=== PATIENT | male | born 1935 | race Caucasian/White ===

== ENCOUNTER 2018-06-09 19:12 | Inpatient (IN) | payer MEDICARE, OTHER ==
[~2018-06-09] VITALS: Ht 180.3 cm; Wt 81.8 kg
[2018-06-09] MEDS ORDERED: pantoprazole IV 80 MG in normal saline 100ml IV soln 100 ML IV ONE (20:05)
[2018-06-09] MEDS ORDERED: pantoprazole 40 MG vial IV ONE (20:10)
[2018-06-09] MEDS ORDERED: normal saline 1000ML IV soln IVB ONE (20:15)
[2018-06-09] MEDS ORDERED: metoprolol tartrate 1mg/ml inj IV ONE (20:20)
[2018-06-09 20:21] LABS: BASOPHILS % (AUTO) 0.1 % (0-1); EOSINOPHILS # (AUTO) 0.1 X10'3 (0-0.9); EOSINOPHILS % (AUTO) 0.9 % (0-6); HEMATOCRIT 22.1 % (42.0-52.0); HEMOGLOBIN 7.7 g/dl (14.0-17.9); LYMPHOCYTES # (AUTO) 2.2 X10'3 (1.1-4.8); LYMPHOCYTES % (AUTO) 19.3 % (21-51); MEAN CORPUSCULAR HEMOGLOBIN 34.2 PG (27.0-31.0); MEAN CORPUSCULAR HGB CONC 34.7 % (33.0-36.5); MEAN CORPUSCULAR VOLUME 98.4 FL (78-98); MONOCYTES # (AUTO) 0.5 X10'3 (0-0.9); MONOCYTES % (AUTO) 4.8 % (2-12); NEUTROPHILS # (AUTO) 8.5 X10'3 (1.8-7.7); NEUTROPHILS % (AUTO) 74.9 % (42-75); PLATELET COUNT 172 X10'3 (140-440); RED BLOOD COUNT 2.25 X10'6 (4.70-6.10); WHITE BLOOD COUNT 11.4 X10'3 (4.5-11.0)
[2018-06-09 20:23] LABS: ALANINE AMINOTRANSFERASE 13 U/L (12-78); ALBUMIN 2.9 G/DL (3.4-5.0); ALBUMIN/GLOBULIN RATIO 1.4 (1.1-1.5); ALKALINE PHOSPHATASE 47 IU/L (46-116); ANION GAP 10 (8-16); ASPARTATE AMINO TRANSFERASE 7 U/L (10-37); BILIRUBIN,TOTAL 0.4 MG/DL (0.1-1.0); BLOOD UREA NITROGEN 52 MG/DL (7-18); BUN/CREATININE RATIO 47.3 (5.4-32.0); CALCIUM 8.3 MG/DL (8.5-10.1); CHLORIDE 105 MMOL/L (99-107); GLUCOSE 129 MG/DL (70-104); POTASSIUM 4.6 MMOL/L (3.5-5.1); SODIUM 136 MMOL/L (135-145); TOTAL CARBON DIOXIDE 21.1 MMOL/L (24-32); eGFR 64 ML/MIN
[2018-06-09] MEDS ORDERED: ondansetron/PF 4mg/2ml inj IV ONE (20:25)
[2018-06-09 21:27] LABS: PARTIAL THROMBOPLASTIN TIME 23 SECONDS (22-32); PROTHROMBIN TIME 10.7 SECONDS (9.0-12.0)
[2018-06-09] MEDS: pantoprazole 40MG/NS 100ML BAG 100 ML IV SCH ×2 (21:33→21:36)
[2018-06-09 23:51] VITALS: BP 130/45
[2018-06-10] VITALS (22 sets, daily range): BP systolic 109–169; BP diastolic 44–93
[2018-06-10] MEDS ORDERED: haloperidol lactate 5mg/ml inj IM ONE ×2 (00:34→00:35)
[2018-06-10] MEDS ORDERED: LORazepam 2 mg/ml vial IV ONE (00:35)
[2018-06-10] MEDS: pantoprazole 40MG/NS 100ML BAG 100 ML IV SCH ×4 (01:00→19:35)
[2018-06-10] MEDS ORDERED: dextrose 50%-water 50ml dispensing syringe IV PRN (01:05)
[2018-06-10] MEDS ORDERED: mag hydrox/Alum hydrox/simeth 30ml oral suspension PO PRN ×2 (01:05)
[2018-06-10] MEDS ORDERED: loperamide 2mg capsule PO PRN (01:05)
[2018-06-10] MEDS ORDERED: diphenhydrAMINE 50 mg/ml inj IV PRN (01:05)
[2018-06-10] MEDS ORDERED: diphenhydrAMINE 25mg capsule PO PRN (01:05)
[2018-06-10] MEDS ORDERED: magnesium hydroxide 30ml (MOM) UD suspension PO PRN (01:05)
[2018-06-10] MEDS ORDERED: acetaminophen 650mg rectal suppository RC PRN (01:05)
[2018-06-10] MEDS ORDERED: acetaminophen 325mg tablet PO PRN ×2 (01:05)
[2018-06-10] MEDS ORDERED: ondansetron/PF 4mg/2ml inj IV PRN (01:05)
[2018-06-10] MEDS ORDERED: cloNIDine 0.1 MG/24 HOUR patch (7 day patch) TD SCH (01:05)
[2018-06-10] MEDS ORDERED: metoclopramide 5 mg/ml inj IV PRN (01:05)
[2018-06-10] MEDS ORDERED: cyclobenzaprine 10mg tablet PO PRN (01:05)
[2018-06-10] MEDS ORDERED: HYDROcodone/acetaminophen 5mg/325mg tablet PO PRN (01:05)
[2018-06-10] MEDS ORDERED: dicyclomine 10 MG capsule PO PRN (01:05)
[2018-06-10] MEDS ORDERED: bisacodyl 10mg suppository rectal RC PRN (01:05)
[2018-06-10] MEDS ORDERED: HYDROmorphone 1 mg/ml syringe IV PRN ×2 (01:05)
[2018-06-10] MEDS ORDERED: morphine 2 MG/ML inj. syringe IV PRN ×2 (01:05)
[2018-06-10] MEDS ORDERED: HYDROcodone/acetaminophen 10/325mg tab PO PRN (01:05)
[2018-06-10 01:37] LABS: HEMOGLOBIN A1C 5.2 % (4.5-6.2)
[2018-06-10 01:40] LABS: CLARITY,URINE CLEAR (Clear); COLOR,URINE YELLOW (Yellow); GLUCOSE, URINE NEGATIVE (Neg); KETONES,URINE NEGATIVE (Neg); LEUKOCYTE ESTERASE ,URINE NEGATIVE (Neg); NITRITES, URINE NEGATIVE (Neg); OCCULT BLOOD,URINE NEGATIVE (Neg); PROTEIN,URINE NEGATIVE (Neg); UROBILINOGEN,URINE 0.2 E.U/dL (0.2-1.0)
[2018-06-10 01:45] LABS: LIPASE 67 U/L (73-393); MAGNESIUM 1.6 MG/DL (1.5-2.4); PHOSPHORUS 2.3 MG/DL (2.3-4.5)
[2018-06-10 01:49] LABS: UA COLLECTION TYPE STRAIGHT CATH
[2018-06-10] MEDS ORDERED: NAPR220C15 PO (01:49)
[2018-06-10] MEDS ORDERED: ASPI-1264 PO (01:49)
[2018-06-10] MEDS ORDERED: LISI-642 PO (01:49)
[2018-06-10] MEDS ORDERED: METO1TAB25 PO (01:49)
[2018-06-10] MEDS: LORazepam 2 mg/ml vial IV PRN ×5 (05:07→22:29)
[2018-06-10] MEDS: normal saline 1000ml 1,000 ML IV SCH (06:46)
[2018-06-10] MEDS: folic acid inj. 2 MG, thiamine inj. 100 MG, MVI, adult No.4 with vit. K 10 ML in dextro... IV SCH ×4 (07:20)
[2018-06-10] MEDS ORDERED: docusate sod 100mg capsule PO SCH (08:00)
[2018-06-10] MEDS ORDERED: pantoprazole 40 MG vial IV SCH (08:00)
[2018-06-10] MEDS ORDERED: fentaNYL/PF 50MCG/1 ML 2ML syringe ONE (08:57)
[2018-06-10] MEDS ORDERED: MIDAZolam 5mg/5ml vial ONE (08:57)
[2018-06-10] MEDS ORDERED: LIDOcaine Viscous 15ml cup ONE (08:57)
[2018-06-10 09:11] LABS: BASOPHILS % (AUTO) 0.2 % (0-1); EOSINOPHILS # (AUTO) 0.1 X10'3 (0-0.9); HEMATOCRIT 23.5 % (42.0-52.0); HEMOGLOBIN 8.1 g/dl (14.0-17.9); LYMPHOCYTES # (AUTO) 1.8 X10'3 (1.1-4.8); MEAN CORPUSCULAR HEMOGLOBIN 32.7 PG (27.0-31.0); MEAN CORPUSCULAR HGB CONC 34.4 % (33.0-36.5); MEAN PLATELET VOLUME 8.6 FL (7.4-10.4); MONOCYTES # (AUTO) 0.6 X10'3 (0-0.9); MONOCYTES % (AUTO) 8.2 % (2-12); NEUTROPHILS # (AUTO) 4.5 X10'3 (1.8-7.7); NEUTROPHILS % (AUTO) 64.6 % (42-75); PLATELET COUNT 120 X10'3 (140-440); RED BLOOD COUNT 2.47 X10'6 (4.70-6.10); RED CELL DISTRIBUTION WIDTH 15.7 % (11.5-14.5); WHITE BLOOD COUNT 6.9 X10'3 (4.5-11.0)
[2018-06-10 09:28] LABS: ALANINE AMINOTRANSFERASE 11 U/L (12-78); ALBUMIN 2.4 G/DL (3.4-5.0); ALBUMIN/GLOBULIN RATIO 1.3 (1.1-1.5); ALKALINE PHOSPHATASE 38 IU/L (46-116); ANION GAP 6 (8-16); ASPARTATE AMINO TRANSFERASE 18 U/L (10-37); BILIRUBIN,TOTAL 1.2 MG/DL (0.1-1.0); BLOOD UREA NITROGEN 34 MG/DL (7-18); BUN/CREATININE RATIO 37.8 (5.4-32.0); CALCIUM 7.8 MG/DL (8.5-10.1); CHLORIDE 110 MMOL/L (99-107); GLUCOSE 104 MG/DL (70-104); POTASSIUM 4.1 MMOL/L (3.5-5.1); SODIUM 139 MMOL/L (135-145); TOTAL PROTEIN 4.3 G/DL (6.4-8.2); eGFR 81 ML/MIN
[2018-06-10 09:42] LABS: PARTIAL THROMBOPLASTIN TIME 23 SECONDS (22-32); PROTHROMBIN TIME 10.7 SECONDS (9.0-12.0)
[2018-06-10 14:13] LABS: H PYLORI ANTIBODY NEGATIVE (Neg)
[2018-06-10] MEDS ORDERED: FOSI10TA3 PO (18:07)
[2018-06-10] MEDS ORDERED: METO25TA6 PO (18:07)
[2018-06-10] MEDS: haloperidol lactate 5mg/ml inj IM PRN (18:42)
[2018-06-10] MEDS: pantoprazole 40mg Tablet.DR PO SCH (19:38)
[2018-06-10] MEDS ORDERED: temazepam 15mg capsule PO PRN (21:00)
[2018-06-11] MEDS: haloperidol lactate 5mg/ml inj IM PRN ×2 (00:38→10:39)
[2018-06-11] MEDS: pantoprazole 40MG/NS 100ML BAG 100 ML IV SCH ×2 (00:39→05:37)
[2018-06-11] MEDS: LORazepam 2 mg/ml vial IV PRN ×4 (01:40→21:59)
[2018-06-11 03:00] VITALS: BP 168/67
[2018-06-11 06:00] VITALS: BP 154/57
[2018-06-11 06:20] LABS: BASOPHILS % (AUTO) 0.3 % (0-1); EOSINOPHILS # (AUTO) 0.1 X10'3 (0-0.9); EOSINOPHILS % (AUTO) 1.2 % (0-6); HEMATOCRIT 23.7 % (42.0-52.0); HEMOGLOBIN 8.3 g/dl (14.0-17.9); LYMPHOCYTES # (AUTO) 1.4 X10'3 (1.1-4.8); LYMPHOCYTES % (AUTO) 23.8 % (21-51); MEAN CORPUSCULAR HEMOGLOBIN 33.1 PG (27.0-31.0); MEAN CORPUSCULAR HGB CONC 34.9 % (33.0-36.5); MEAN CORPUSCULAR VOLUME 94.8 FL (78-98); MONOCYTES # (AUTO) 0.5 X10'3 (0-0.9); MONOCYTES % (AUTO) 9.5 % (2-12); NEUTROPHILS # (AUTO) 3.7 X10'3 (1.8-7.7); NEUTROPHILS % (AUTO) 65.2 % (42-75); PLATELET COUNT 119 X10'3 (140-440); RED CELL DISTRIBUTION WIDTH 15.6 % (11.5-14.5); WHITE BLOOD COUNT 5.7 X10'3 (4.5-11.0)
[2018-06-11 06:36] LABS: ALANINE AMINOTRANSFERASE 22 U/L (12-78); ALBUMIN 2.7 G/DL (3.4-5.0); ALBUMIN/GLOBULIN RATIO 1.3 (1.1-1.5); ALKALINE PHOSPHATASE 41 IU/L (46-116); AMYLASE 36 U/L (25-115); ANION GAP 7 (8-16); ASPARTATE AMINO TRANSFERASE 28 U/L (10-37); BILIRUBIN,TOTAL 1.2 MG/DL (0.1-1.0); BLOOD UREA NITROGEN 19 MG/DL (7-18); BUN/CREATININE RATIO 24.1 (5.4-32.0); CALCIUM 8.3 MG/DL (8.5-10.1); CHLORIDE 110 MMOL/L (99-107); CHOLESTEROL 102 MG/DL (0-200); CREATININE 0.79 MG/DL (0.60-1.10); GLUCOSE 102 MG/DL (70-104); HDL CHOLESTEROL 34 MG/DL (35-60); LDL CHOLESTEROL 54 MG/DL (50-100); POTASSIUM 4.2 MMOL/L (3.5-5.1); SODIUM 141 MMOL/L (135-145); TOTAL CARBON DIOXIDE 24.3 MMOL/L (24-32); TOTAL PROTEIN 4.8 G/DL (6.4-8.2); TRIGLYCERIDES 140 MG/DL (20-135); eGFR > 90 ML/MIN
[2018-06-11 07:01] LABS: MAGNESIUM 1.9 MG/DL (1.5-2.4)
[2018-06-11] MEDS: pantoprazole 40mg Tablet.DR PO SCH (08:00)
[2018-06-11] MEDS: folic acid inj. 2 MG, thiamine inj. 100 MG, MVI, adult No.4 with vit. K 10 ML in dextro... IV SCH ×4 (08:28)
[2018-06-11] MEDS ORDERED: iohexol 350MG/ML 100ml bottle IV ONE (10:26)
[2018-06-11 11:00] VITALS: BP 102/43
[2018-06-11 15:00] VITALS: BP 149/50
[2018-06-11 18:29] VITALS: BP 149/50
[2018-06-11 19:00] VITALS: BP 152/62
[2018-06-11] MEDS: metoprolol tartrate 25mg tablet PO SCH (20:00)
[2018-06-11] MEDS: pantoprazole 40 MG vial IV SCH (20:39)
[2018-06-12] MEDS: normal saline 1000ml 1,000 ML IV SCH (01:01)
[2018-06-12 03:00] VITALS: BP 144/53
[2018-06-12 05:03] LABS: BASOPHILS % (AUTO) 0.3 % (0-1); EOSINOPHILS # (AUTO) 0.1 X10'3 (0-0.9); EOSINOPHILS % (AUTO) 1.5 % (0-6); HEMATOCRIT 22.2 % (42.0-52.0); HEMOGLOBIN 7.9 g/dl (14.0-17.9); LYMPHOCYTES % (AUTO) 17.4 % (21-51); MEAN CORPUSCULAR HEMOGLOBIN 33.6 PG (27.0-31.0); MEAN CORPUSCULAR HGB CONC 35.4 % (33.0-36.5); MEAN CORPUSCULAR VOLUME 94.8 FL (78-98); MEAN PLATELET VOLUME 8.2 FL (7.4-10.4); MONOCYTES # (AUTO) 0.6 X10'3 (0-0.9); MONOCYTES % (AUTO) 11.1 % (2-12); NEUTROPHILS # (AUTO) 3.8 X10'3 (1.8-7.7); NEUTROPHILS % (AUTO) 69.7 % (42-75); PLATELET COUNT 134 X10'3 (140-440); RED BLOOD COUNT 2.34 X10'6 (4.70-6.10); RED CELL DISTRIBUTION WIDTH 15.1 % (11.5-14.5); WHITE BLOOD COUNT 5.5 X10'3 (4.5-11.0)
[2018-06-12 06:00] VITALS: BP 161/63
[2018-06-12 06:08] LABS: ALANINE AMINOTRANSFERASE 19 U/L (12-78); ALBUMIN 2.5 G/DL (3.4-5.0); ALBUMIN/GLOBULIN RATIO 1.1 (1.1-1.5); ALKALINE PHOSPHATASE 51 IU/L (46-116); AMYLASE 36 U/L (25-115); ANION GAP 7 (8-16); ASPARTATE AMINO TRANSFERASE 32 U/L (10-37); BILIRUBIN,TOTAL 1.3 MG/DL (0.1-1.0); BLOOD UREA NITROGEN 16 MG/DL (7-18); BUN/CREATININE RATIO 21.3 (5.4-32.0); CHLORIDE 108 MMOL/L (99-107); CREATININE 0.75 MG/DL (0.60-1.10); GLUCOSE 104 MG/DL (70-104); POTASSIUM 3.7 MMOL/L (3.5-5.1); SODIUM 140 MMOL/L (135-145); TOTAL CARBON DIOXIDE 24.9 MMOL/L (24-32); TOTAL PROTEIN 4.8 G/DL (6.4-8.2); eGFR > 90 ML/MIN
[2018-06-12] MEDS: pantoprazole 40 MG vial IV SCH ×2 (07:18→21:00)
[2018-06-12] MEDS: folic acid inj. 2 MG, thiamine inj. 100 MG, MVI, adult No.4 with vit. K 10 ML in dextro... IV SCH ×4 (07:18)
[2018-06-12] MEDS: metoprolol tartrate 25mg tablet PO SCH ×2 (07:28→20:00)
[2018-06-12] MEDS: lisinopril 10 MG tablet PO SCH (07:28)
[2018-06-12] MEDS ORDERED: FOSINOPRIL SODIUM 10 MG PO SCH (08:00)
[2018-06-12 11:00] VITALS: BP 190/67
[2018-06-12 15:00] VITALS: BP 163/57
[2018-06-12] MEDS ORDERED: CARB15DR2 OP (16:55)
[2018-06-12] MEDS ORDERED: TRAV5DRO OP (16:55)
[2018-06-12 19:00] VITALS: BP 133/48
[2018-06-12] MEDS: LORazepam 2 mg/ml vial IV PRN (19:16)
[2018-06-12 23:00] VITALS: BP 184/82
[2018-06-13 03:00] VITALS: BP 155/68
[2018-06-13 05:52] LABS: BASOPHILS % (AUTO) 0.2 % (0-1); EOSINOPHILS # (AUTO) 0.1 X10'3 (0-0.9); EOSINOPHILS % (AUTO) 1.2 % (0-6); HEMOGLOBIN 7.7 g/dl (14.0-17.9); LYMPHOCYTES # (AUTO) 0.9 X10'3 (1.1-4.8); LYMPHOCYTES % (AUTO) 16.5 % (21-51); MEAN CORPUSCULAR HEMOGLOBIN 33.3 PG (27.0-31.0); MEAN CORPUSCULAR HGB CONC 35.1 % (33.0-36.5); MEAN CORPUSCULAR VOLUME 94.9 FL (78-98); MEAN PLATELET VOLUME 8.3 FL (7.4-10.4); MONOCYTES # (AUTO) 0.6 X10'3 (0-0.9); MONOCYTES % (AUTO) 10.7 % (2-12); NEUTROPHILS # (AUTO) 3.9 X10'3 (1.8-7.7); NEUTROPHILS % (AUTO) 71.4 % (42-75); PLATELET COUNT 156 X10'3 (140-440); RED CELL DISTRIBUTION WIDTH 14.5 % (11.5-14.5); WHITE BLOOD COUNT 5.4 X10'3 (4.5-11.0)
[2018-06-13 05:54] LABS: HEMATOCRIT 21.8 % (42.0-52.0)
[2018-06-13 06:12] LABS: ALANINE AMINOTRANSFERASE 25 U/L (12-78); ALBUMIN 2.6 G/DL (3.4-5.0); ALBUMIN/GLOBULIN RATIO 1.1 (1.1-1.5); ALKALINE PHOSPHATASE 50 IU/L (46-116); AMYLASE 33 U/L (25-115); ANION GAP 10 (8-16); ASPARTATE AMINO TRANSFERASE 30 U/L (10-37); BILIRUBIN,TOTAL 1.4 MG/DL (0.1-1.0); BLOOD UREA NITROGEN 17 MG/DL (7-18); BUN/CREATININE RATIO 20.5 (5.4-32.0); CALCIUM 8.4 MG/DL (8.5-10.1); CHLORIDE 108 MMOL/L (99-107); CREATININE 0.83 MG/DL (0.60-1.10); GLUCOSE 92 MG/DL (70-104); POTASSIUM 3.4 MMOL/L (3.5-5.1); SODIUM 142 MMOL/L (135-145); TOTAL PROTEIN 4.9 G/DL (6.4-8.2); eGFR 88 ML/MIN
[2018-06-13 07:00] VITALS: BP 121/58
[2018-06-13] MEDS: pantoprazole 40 MG vial IV SCH ×2 (07:11→21:02)
[2018-06-13] MEDS: folic acid inj. 2 MG, thiamine inj. 100 MG, MVI, adult No.4 with vit. K 10 ML in dextro... IV SCH ×4 (07:11)
[2018-06-13] MEDS: [UNRECOGNIZED DRUG - OTHER] EACHEYE SCH (08:00)
[2018-06-13] MEDS: metoprolol tartrate 25mg tablet PO SCH ×2 (08:00→20:00)
[2018-06-13] MEDS: lisinopril 10 MG tablet PO SCH (08:00)
[2018-06-13] MEDS: EYE EACHEYE SCH (08:00)
[2018-06-13] MEDS: TRAVOPROST 0.004% EACHEYE SCH (08:00)
[2018-06-13] MEDS: CARBOXYMETHYLCELLULOS EACHEYE SCH (08:00)
[2018-06-13 11:00] VITALS: BP 165/71
[2018-06-13] MEDS ORDERED: LORazepam 2 mg/ml vial IV ONE (13:10)
[2018-06-13] MEDS ORDERED: LORazepam 2 mg/ml vial IV PRN (13:25)
[2018-06-13 15:00] VITALS: BP 139/51
[2018-06-13] MEDS ORDERED: magnesium 4gm in 100ml NS 100 ML IV PRN (15:20)
[2018-06-13] MEDS: potassium cl 20mEq in 1/2 NS 1,000 ML IV SCH ×2 (15:20→22:31)
[2018-06-13] MEDS ORDERED: magnesium Cl slow-release 64mg tablet PO PRN (15:20)
[2018-06-13] MEDS ORDERED: potassium Cl 20 mEq SR tablet PO PRN ×2 (15:20)
[2018-06-13] MEDS ORDERED: potassium Cl 40MEQ/NS 500ml 500 ML IV PRN ×2 (15:20)
[2018-06-13 19:00] VITALS: BP 129/106
[2018-06-13 22:00] VITALS: BP 180/83
[2018-06-13] MEDS: hydrALAZINE 20mg/ml inj. IV PRN (23:05)
[2018-06-14] VITALS (10 sets, daily range): BP systolic 98–200; BP diastolic 47–77
[2018-06-14 05:30] LABS: BASOPHILS % (AUTO) 0.3 % (0-1); EOSINOPHILS # (AUTO) 0.1 X10'3 (0-0.9); EOSINOPHILS % (AUTO) 2.1 % (0-6); HEMOGLOBIN 7.6 g/dl (14.0-17.9); LYMPHOCYTES # (AUTO) 1.1 X10'3 (1.1-4.8); LYMPHOCYTES % (AUTO) 21.6 % (21-51); MEAN CORPUSCULAR HEMOGLOBIN 33.1 PG (27.0-31.0); MEAN CORPUSCULAR HGB CONC 34.7 % (33.0-36.5); MEAN CORPUSCULAR VOLUME 95.4 FL (78-98); MEAN PLATELET VOLUME 8.3 FL (7.4-10.4); MONOCYTES # (AUTO) 0.7 X10'3 (0-0.9); NEUTROPHILS # (AUTO) 3.3 X10'3 (1.8-7.7); PLATELET COUNT 181 X10'3 (140-440); RED BLOOD COUNT 2.29 X10'6 (4.70-6.10); RED CELL DISTRIBUTION WIDTH 15.1 % (11.5-14.5); WHITE BLOOD COUNT 5.3 X10'3 (4.5-11.0)
[2018-06-14 05:42] LABS: HEMATOCRIT 21.8 % (42.0-52.0)
[2018-06-14 05:54] LABS: ALANINE AMINOTRANSFERASE 18 U/L (12-78); ALBUMIN 2.5 G/DL (3.4-5.0); ALKALINE PHOSPHATASE 50 IU/L (46-116); ANION GAP 9 (8-16); ASPARTATE AMINO TRANSFERASE 26 U/L (10-37); BILIRUBIN,TOTAL 1.3 MG/DL (0.1-1.0); BLOOD UREA NITROGEN 16 MG/DL (7-18); BUN/CREATININE RATIO 18.8 (5.4-32.0); CALCIUM 8.3 MG/DL (8.5-10.1); CHLORIDE 107 MMOL/L (99-107); CREATININE 0.85 MG/DL (0.60-1.10); GLUCOSE 83 MG/DL (70-104); POTASSIUM 3.5 MMOL/L (3.5-5.1); SODIUM 141 MMOL/L (135-145); TOTAL CARBON DIOXIDE 25.5 MMOL/L (24-32); eGFR 86 ML/MIN
[2018-06-14] MEDS: pantoprazole 40 MG vial IV SCH ×2 (07:16→21:54)
[2018-06-14] MEDS: folic acid inj. 2 MG, thiamine inj. 100 MG, MVI, adult No.4 with vit. K 10 ML in dextro... IV SCH ×4 (07:17)
[2018-06-14] MEDS: metoprolol tartrate 25mg tablet PO SCH ×2 (08:00→20:00)
[2018-06-14] MEDS: lisinopril 10 MG tablet PO SCH (08:00)
[2018-06-14] MEDS: CARBOXYMETHYLCELLULOS EACHEYE SCH (08:50)
[2018-06-14] MEDS: [UNRECOGNIZED DRUG - OTHER] EACHEYE SCH (08:50)
[2018-06-14] MEDS: TRAVOPROST 0.004% EACHEYE SCH (08:51)
[2018-06-14] MEDS: EYE EACHEYE SCH (08:51)
[2018-06-14] MEDS: hydrALAZINE 20mg/ml inj. IV PRN (18:19)
[2018-06-14] MEDS: potassium cl 20mEq in 1/2 NS 1,000 ML IV SCH (19:56)
[2018-06-14] MEDS: enoxaparin 30mg/0.3ml syringe SUBCUT SCH (21:59)
[2018-06-15 02:00] VITALS: BP 177/70
[2018-06-15] MEDS: hydrALAZINE 20mg/ml inj. IV PRN ×2 (03:11→10:10)
[2018-06-15 03:15] VITALS: BP 155/62
[2018-06-15] MEDS: potassium cl 20mEq in 1/2 NS 1,000 ML IV SCH (04:56)
[2018-06-15 06:09] LABS: BASOPHILS % (AUTO) 0.4 % (0-1); EOSINOPHILS # (AUTO) 0.1 X10'3 (0-0.9); EOSINOPHILS % (AUTO) 2.7 % (0-6); HEMATOCRIT 26.9 % (42.0-52.0); HEMOGLOBIN 9.4 g/dl (14.0-17.9); LYMPHOCYTES % (AUTO) 19.3 % (21-51); MEAN CORPUSCULAR HGB CONC 34.9 % (33.0-36.5); MEAN CORPUSCULAR VOLUME 94.6 FL (78-98); MEAN PLATELET VOLUME 8.2 FL (7.4-10.4); MONOCYTES # (AUTO) 0.7 X10'3 (0-0.9); MONOCYTES % (AUTO) 13.7 % (2-12); NEUTROPHILS # (AUTO) 3.4 X10'3 (1.8-7.7); NEUTROPHILS % (AUTO) 63.9 % (42-75); PLATELET COUNT 229 X10'3 (140-440); RED BLOOD COUNT 2.84 X10'6 (4.70-6.10); RED CELL DISTRIBUTION WIDTH 14.9 % (11.5-14.5); WHITE BLOOD COUNT 5.3 X10'3 (4.5-11.0)
[2018-06-15 06:43] VITALS: BP 156/61
[2018-06-15 06:46] LABS: ALANINE AMINOTRANSFERASE 23 U/L (12-78); ALBUMIN 2.7 G/DL (3.4-5.0); ALKALINE PHOSPHATASE 55 IU/L (46-116); ANION GAP 12 (8-16); ASPARTATE AMINO TRANSFERASE 24 U/L (10-37); BILIRUBIN,TOTAL 1.5 MG/DL (0.1-1.0); BLOOD UREA NITROGEN 13 MG/DL (7-18); BUN/CREATININE RATIO 15.3 (5.4-32.0); CALCIUM 8.6 MG/DL (8.5-10.1); CHLORIDE 106 MMOL/L (99-107); CREATININE 0.85 MG/DL (0.60-1.10); GLUCOSE 86 MG/DL (70-104); MAGNESIUM 1.9 MG/DL (1.5-2.4); POTASSIUM 3.7 MMOL/L (3.5-5.1); SODIUM 140 MMOL/L (135-145); TOTAL CARBON DIOXIDE 21.7 MMOL/L (24-32); TOTAL PROTEIN 5.5 G/DL (6.4-8.2); eGFR 86 ML/MIN
[2018-06-15] MEDS: TRAVOPROST 0.004% EACHEYE SCH (08:00)
[2018-06-15] MEDS: EYE EACHEYE SCH (08:00)
[2018-06-15] MEDS: [UNRECOGNIZED DRUG - OTHER] EACHEYE SCH (08:00)
[2018-06-15] MEDS: CARBOXYMETHYLCELLULOS EACHEYE SCH (08:00)
[2018-06-15 10:00] VITALS: BP 203/73
[2018-06-15] MEDS: pantoprazole 40 MG vial IV SCH (10:09)
[2018-06-15] MEDS: enoxaparin 30mg/0.3ml syringe SUBCUT SCH (10:10)
[2018-06-15] MEDS: metoprolol tartrate 25mg tablet PO SCH (10:10)
[2018-06-15] MEDS: lisinopril 10 MG tablet PO SCH (10:10)
[2018-06-15 10:20] VITALS: BP 154/119
[2018-06-15] MEDS: folic acid inj. 2 MG, thiamine inj. 100 MG, MVI, adult No.4 with vit. K 10 ML in dextro... IV SCH ×4 (11:14)
[2018-06-15 14:00] VITALS: BP 121/57
[2018-06-16] MEDS ORDERED: multivitamins, therapeutics tablet PO SCH (08:00)
[2018-06-16] MEDS ORDERED: folic acid 1mg tablet PO SCH (08:00)
[2018-06-16] MEDS ORDERED: thiamine 100mg tablet PO SCH (08:00)
== END 2018-06-15 15:07 | DRG 380 ==
LOC: ER 19:12 → ED HOLD 06-10 01:01 → EDBEDREQ 06-10 01:42 → PCU 3S 06-10 02:00 → ORTHO 4S 06-15 00:30
PROVIDERS: ADMIT Family Medicine; ATTEND Family Medicine
PROC: 30233N1 Transfusion of Nonautologous Red Blood Cells into Peripheral Vein, Percutaneous Approach (ICD-10-PCS; 2018-06-09)
PROC: 0DJ08ZZ Inspection of Upper Intestinal Tract, Via Natural or Artificial Opening Endoscopic (ICD-10-PCS; principal; 2018-06-10)
PROC: 30233N1 Transfusion of Nonautologous Red Blood Cells into Peripheral Vein, Percutaneous Approach (ICD-10-PCS; 2018-06-10)
PROC: B32G1ZZ Computerized Tomography (CT Scan) of Bilateral Vertebral Arteries using Low Osmolar Contrast (ICD-10-PCS; 2018-06-11)
PROC: 30233N1 Transfusion of Nonautologous Red Blood Cells into Peripheral Vein, Percutaneous Approach (ICD-10-PCS; 2018-06-14)
DX: K22.11 Ulcer of esophagus with bleeding (principal); I63.512 Cerebral infarction due to unspecified occlusion or stenosis of left middle cerebral artery; D62 Acute posthemorrhagic anemia; F10.239 Alcohol dependence with withdrawal, unspecified; I16.1 Hypertensive emergency; K29.60 Other gastritis without bleeding; G31.2 Degeneration of nervous system due to alcohol; K44.9 Diaphragmatic hernia without obstruction or gangrene; F03.90 Unspecified dementia, unspecified severity, without behavioral disturbance, psychotic disturbance, mood disturbance, and anxiety; R01.1 Cardiac murmur, unspecified; E87.6 Hypokalemia; I10 Essential (primary) hypertension; I25.10 Atherosclerotic heart disease of native coronary artery without angina pectoris; I48.91 Unspecified atrial fibrillation; K21.0 Gastro-esophageal reflux disease with esophagitis; N28.89 Other specified disorders of kidney and ureter; R29.810 Facial weakness; Z79.82 Long term (current) use of aspirin; Z79.899 Other long term (current) drug therapy; Z95.1 Presence of aortocoronary bypass graft
CPT/HCPCS: 36415; 70450; 70496; 70551; 71045; 74176; 80053; 80061; 81003; 82140; 82150; 82948; 83036; 83690; 83735; 83880; 84100; 84484; 85025; 85610; 85730; 86677; 86885; 86900; 86901; 86920; 87070; 92616; 93005; 93880; 96361; 96374; 96375; 97110; 97116; 97162; 97530; 99285; A4353; A4620; A4649; A6212; A6222; A6250; A9270; C9113; G0500; J0360; J1630; J1650; J2060; J2250; J2405; J3010; J3411; J3490; J7030; J7060; P9016; Q9967

== ENCOUNTER 2018-09-11 13:11 | Outpatient (CLI) | payer MEDICARE, BC ==
[~2018-09-11 13:11] MED LIST: ASPI-1264 PO; CARB15DR2 OP; FOSI10TA3 PO; METO25TA6 PO; TRAV5DRO OP
== END 2018-09-11 23:59 | disposition home or self-care (01) ==
LOC: CARD DIAG 13:11
PROVIDERS: ATTEND Family Medicine
DX: I08.3 Combined rheumatic disorders of mitral, aortic and tricuspid valves (principal); I48.91 Unspecified atrial fibrillation; I63.512 Cerebral infarction due to unspecified occlusion or stenosis of left middle cerebral artery; N28.89 Other specified disorders of kidney and ureter; I25.2 Old myocardial infarction; Z79.82 Long term (current) use of aspirin; Z87.891 Personal history of nicotine dependence
CPT/HCPCS: 93306

== ENCOUNTER 2018-10-02 09:37 | Outpatient (CLI) | payer MEDICARE, BC ==
[2018-10-02] MEDS ORDERED: gadopentetate dimeglumine 7.5 MMOL/15 ML syringe ONE (11:22)
== END 2018-10-02 23:59 | disposition home or self-care (01) ==
LOC: RAD 09:37
PROVIDERS: ATTEND Family Medicine
DX: N28.1 Cyst of kidney, acquired (principal); I63.512 Cerebral infarction due to unspecified occlusion or stenosis of left middle cerebral artery; I25.2 Old myocardial infarction; Z79.82 Long term (current) use of aspirin; Z79.899 Other long term (current) drug therapy; Z87.891 Personal history of nicotine dependence
CPT/HCPCS: 74183; A9579